=== PATIENT | male | born 1970 | race Caucasian/White ===

== ENCOUNTER 2019-04-22 16:48 | Emergency (ER) | payer OTHER ==
[~2019-04-22] VITALS: Ht 190.5 cm; Wt 155.0 kg
[2019-04-22 16:52] VITALS: BP 132/74; Ht 190.5 cm; Wt 155.0 kg
== END 2019-04-22 18:29 | disposition home or self-care (01) ==
LOC: D.ER 16:48
DX: S80.811A Abrasion, right lower leg, initial encounter (principal); S80.02XA Contusion of left knee, initial encounter; W22.03XA Walked into furniture, initial encounter; Y93.9 Activity, unspecified; Y92.9 Unspecified place or not applicable; I11.0 Hypertensive heart disease with heart failure; I50.9 Heart failure, unspecified; I48.91 Unspecified atrial fibrillation

== ENCOUNTER 2019-05-18 19:29 | Emergency (ER) | payer OTHER ==
[~2019-05-18] VITALS: Ht 190.5 cm; Wt 154.5 kg
[2019-05-18 20:06] VITALS: Ht 190.5 cm; Wt 154.5 kg
[2019-05-18] MEDS ORDERED: PACERONE200 MG PO (20:08)
[2019-05-18] MEDS ORDERED: LASIX40 MG PO (20:08)
[2019-05-18] MEDS ORDERED: LOPRESSOR25 MG PO (20:08)
[2019-05-18] MEDS ORDERED: XARELTO20 MG PO (20:09)
[2019-05-18] MEDS ORDERED: LIPITOR20 MG PO (20:09)
[2019-05-18] MEDS ORDERED: PROTONIX20 MG PO (20:09)
[2019-05-18] MEDS ORDERED: PLAVIX75 MG PO (20:10)
[2019-05-18 21:17] LABS: BASOPHILS 0.7 % (0-2); EOSINOPHILS 4.7 % (0-7); HEMATOCRIT 38.5 % (42.0-54.0); HEMOGLOBIN 13.1 g/dL (13.5-17.5); LYMPHOCYTES 31.3 % (15-50); MCH 33.4 pg (26.0-34.0); MCV 98.2 fL (80.0-100.0); MEAN PLATELET VOLUME 8.5 fL (7.4-10.4); MONOCYTES 11.7 % (2-11); NEUTROPHILS 51.6 % (40-80); PLATELET COUNT 185 10x3/uL (130-400); RBC 3.92 10x6/uL (4.20-6.10); RDW 13.7 % (11.5-14.5); WBC 6.1 10x3/uL (4.8-10.8)
[2019-05-18 21:34] LABS: CALC OSMOLALITY 284 mosm/kg (275-300); CARBON DIOXIDE 29.2 mmol/L (21.0-32.0); CHLORIDE - SERUM 106 mmol/L (98-107); GLUCOSE 104 mg/dL (74-106); POTASSIUM - SERUM 3.2 mmol/L (3.5-5.1); SODIUM 142 mmol/L (136-145); UREA NITROGEN 18 mg/dL (7-18); eGFR NON AFRICAN AMERICAN 85 mL/min (90-120)
[2019-05-18 21:46] LABS: ALBUMIN 3.7 g/dL (3.4-5.0); ALKALINE PHOSPHATASE 65 U/L (30-120); ALT (SGPT) 37 U/L (10-68); PRO BNP 60 pg/mL (0-125); PROTEIN - SERUM 7.3 g/dL (6.4-8.2)
[2019-05-18 22:42] VITALS: BP 123/77
== END 2019-05-18 22:43 | disposition home or self-care (01) ==
LOC: D.ER 19:29
PROVIDERS: Family Medicine
DX: M79.89 Other specified soft tissue disorders (principal); D64.9 Anemia, unspecified; E87.6 Hypokalemia; I10 Essential (primary) hypertension; I48.91 Unspecified atrial fibrillation; K21.9 Gastro-esophageal reflux disease without esophagitis; Z72.0 Tobacco use